=== PATIENT | male | born 2000 | race African-American/Black ===

== ENCOUNTER 2022-04-01 19:18 | Emergency (ER) | payer MEDICAID ==
[~2022-04-01] VITALS: Ht 182.9 cm; Wt 86.4 kg
[2022-04-01] MEDS ORDERED: SODIUM CHLORIDE 0.9% 250 ML IRRIG SOLUTION BOTTLE IRRIG ONE (20:15)
[2022-04-01 20:31] VITALS: BP 127/86
== END 2022-04-01 21:13 | disposition left against medical advice (07) ==
LOC: EMS 19:22
DX: S01.01XA Laceration without foreign body of scalp, initial encounter (principal); F10.20 Alcohol dependence, uncomplicated; F17.210 Nicotine dependence, cigarettes, uncomplicated; Y08.09XA Assault by strike by other specified type of sport equipment, initial encounter; Y93.89 Activity, other specified; Y92.89 Other specified places as the place of occurrence of the external cause; Y99.8 Other external cause status
CPT/HCPCS: 12002; 70450; 71046; 72125; 99284